=== PATIENT | male | born 1985 | race Two or more races ===

== ENCOUNTER 2022-02-01 08:41 | Emergency (ER) | payer OTHER, SELFPAY ==
[2022-02-01 09:10] VITALS: BP 122/92; PULSE 95; RESP 20; TEMP 35.9; O2SAT 98; BMI 36.0
--- NOTE | 2022-02-01 09:49 | ED.LOWEXIN ---
HPI - Extremity Injury (Lower) General Chief Complaint: Skin/Abscess/Foreign Body Stated Complaint: Blister on toe/Type 2 diabetic Time Seen by Provider: 02/01/22 09:27 History of Present Illness HPI Narrative: This 36-year-old male comes in with a blister on dorsal aspect of his right 2nd toe. 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 He states that he does not have much feeling in his feet. His changed issues today and noticed a blister on his 2nd toe. Related Data Home Medications Medication Instructions Recorded Confirmed atorvastatin 40 mg tablet 40 mg PO DAILY 02/01/22 02/01/22 dorzolamide 22.3 mg-timolol 6.8 1 drp ophthalmic (eye) BID 02/01/22 02/01/22 mg/mL eye drops insulin glargine 100 unit/mL (3 15 unit subcut HS 02/01/22 02/01/22 mL) subcutaneous pen (Lantus Solostar U-100 Insulin) nifedipine 30 mg tablet,extended 30 mg PO .po 02/01/22 02/01/22 release 24 hr omeprazole 20 mg capsule,delayed 20 mg PO DAILY 02/01/22 02/01/22 release prednisolone acetate 1 % eye 1 drp ophthalmic (eye) TID 02/01/22 02/01/22 drops,suspension sitagliptin phosphate 100 mg 100 mg PO DAILY 02/01/22 02/01/22 tablet (Januvia) Allergies Allergy/AdvReac Type Severity Reaction Status Date / Time aspirin [From Lluvia Aspirin] Allergy Nose Bleed Verified 02/01/22 09:22 metformin Allergy Chest Pain Verified 02/01/22 09:22 paroxetine [From Paxil] Allergy Verified 02/01/22 09:22 tree nut Allergy Verified 02/01/22 09:22 Review of Systems Status of ROS: Reports: 10 or more systems reviewed and unremarkable except as noted in History and below Narrative: Constitutional: No fevers, no weight gain or loss. Eyes: No discharge. Poor vision secondary to diabetic retinopathy. HENT: No congestion, no sore throat, no ear pain. Cardiovascular: No chest pain, no palpitations. Respiratory: No shortness of breath, no wheezes, no cough. Gastrointestinal: No abdominal pain, no vomiting, no diarrhea. Genitourinary: No dysuria, no hematuria. Musculoskeletal: Normal range of motion. Skin: No rashes, no pruritis. Neurological: No dizziness, weakness, speech change. Peripheral neuropathy secondary to diabetes. Endo/Heme/Allergies: No bruising or bleeding. No polydipsia. Pysch: no suicidality, no anxiety, no insomnia. All other systems reviewed and are negative. [facility] Social History Smoking Status: Current every day smoker What tobacco products do you use: cigarettes Smoking packs per day: 0.25 Smoking cigarettes per day: 5.0 Do you use any of these nicotine containing products: None Second hand tobacco smoke exposure: No How often do you have a drink containing alcohol: never How often do you have six or more drinks on one occasion: Never AUDIT-C Alcohol total score: 0 Non-prescribed substance use: denies use Exam Narrative: Exam Narrative: Constitutional: Well-developed, well-nourished, no acute distress. HEENT: Normocephalic, atraumatic. Neck: Normal range of motion. Nontender. Supple. Heart: Intact distal pulses. Lungs: No chest discomfort. No wheezes, rhonchi, or rales. Abdomen: Nontender. Back: Normal range of motion. Extremities: Normal range of motion. No injury. Skin: Intact. No rash. Warm. No erythema or pallor. There is a blister on the dorsal aspect of the right 2nd toe. There is no erythema or other sign of infection or drainage. Neurologic: No altered sensation. No weakness. Alert and oriented. Psychiatric: No suicidality. No anxiety or depression. No insomnia. Nursing notes and vitals signs are reviewed. Const: Vital Signs, click to edit/add: Vital Signs - 24 hr 02/01/22 09:10 Temperature 96.6 F L Pulse Rate [Pulse Oximeter] 95 Respiratory Rate 20 Blood Pressure [Ri ght Upper Arm] 122/92 H Pulse Oximetry 98 Oxygen Delivery Me thod Room Air Course Vital Signs Vital signs: Initial Vital Signs Temperature 96.6 F L 02/01/22 09:10 Temperature Source Temporal Artery Scan 02/01/22 09:10 Pulse Rate 95 02/01/22 09:10 Pulse Rhythm 02/01/22 09:10 Respiratory Rate 20 02/01/22 09:10 Blood Pressure 122/92 H 02/01/22 09:10 Blood Pressure Mean 102 02/01/22 09:10 Blood Pressure Position Sitting 02/01/22 09:10 Pulse Oximetry 98 02/01/22 09:10 Oxygen Delivery Method 02/01/22 09:10 Vital Signs Temperature 96.6 F L 02/01/22 09:10 Pulse Rate 95 02/01/22 09:10 Respiratory Rate 20 02/01/22 09:10 Blood Pressure 122/92 H 02/01/22 09:10 Pulse Oximetry 98 02/01/22 09:10 Oxygen Delivery Method 02/01/22 09:10 Temperature 96.6 F L 02/01/22 09:10 Pulse Rate 95 02/01/22 09:10 Respiratory Rate 20 02/01/22 09:10 Blood Pressure 122/92 H 02/01/22 09:10 Pulse Oximetry 98 02/01/22 09:10 Oxygen Delivery Method 02/01/22 09:10 MDM - Extremity Injury (Lower) MDM Narrative Medical decision making narrative: This patient has a blister on his right 2nd toe. I did drain the blister then left the skin otherwise intact. Bacitracin was applied followed by a Band-Aid. I did stress the importance of daily assessment of his feet when he has neuropathy. Currently there is no sign of infection. I did describe signs and symptoms that would indicate a need for return and re-evaluation. Discharge Plan Discharge Clinical Impression: Diabetic neuropathy, Blister Patient Disposition: Home, Self-Care Condition: Stable Additional Instructions: Check feet at least daily to observe for injury or signs of infection. Follow up with MD to continue improving management of blood glucose. Return if worsening. Prescriptions: No Action insulin glargine [Lantus Solostar U-100 Insulin] 100 unit/mL (3 mL) insulin pen 15 unit SUBCUT HS nifedipine 30 mg tablet extended release 24hr 30 mg PO .po prednisolone acetate 1 % drops,suspension 1 drp ophthalmic (eye) TID Januvia 100 mg tablet 100 mg PO DAILY omeprazole 20 mg capsule,delayed release(DR/EC) 20 mg PO DAILY atorvastatin 40 mg tablet 40 mg PO DAILY dorzolamide-timolol 22.3-6.8 mg/mL drops 1 drp ophthalmic (eye) BID Label Comments: Right eye Stand Alone [facility]
== END 2022-02-01 10:10 | disposition home or self-care (01) ==
LOC: ED 10:04
PROVIDERS: Emergency Provider Emergency Medicine Emergency Medical Services
DX: S90.424A Blister (nonthermal), right lesser toe(s), initial encounter (principal); E11.21 Type 2 diabetes mellitus with diabetic nephropathy
CPT/HCPCS: 99283; 99284

== ENCOUNTER 2022-10-01 19:39 | Outpatient (CLI) | payer MEDICAID, SELFPAY | END 2022-10-01 19:40 | disposition home or self-care (01) | LOC: AMB 10-25 15:28 | PROVIDERS: Visit Provider Family Medicine | DX: R53.1 Weakness (principal); R10.9 Unspecified abdominal pain; R11.2 Nausea with vomiting, unspecified; R42 Dizziness and giddiness | CPT/HCPCS: A0425; A0427 ==